=== PATIENT | female | born 1955 | race Asian ===

== ENCOUNTER → 2018-12-31 | Outpatient (CLI) | payer OTHER ==
[~2018-12-31] MED LIST: ASPI-715 PO; ASPI81TA15 PO; DULA0.75; FENO40TA3; IBU800 PO; LOR5 PO; LUTE20CA11 PO; METF-420 PO; METF-450 PO; OXYC-717 PO; PER PO; PIOG30TA27 PO; PREOD OD; ZOLP-1 PO
== END ==
LOC: AUD 09:30
PROVIDERS: ATTEND Physician Assistant
DX: H90.5 Unspecified sensorineural hearing loss (principal)
CPT/HCPCS: 92557; 92570

== ENCOUNTER → 2019-01-06 | Outpatient (CLI) | payer OTHER ==
[~2019-01-06] MED LIST changes: +GADOBENATE 529MG/1ML 15ML VIAL IVP ONE
--- NOTE | 2019-01-06 12:09 | RADIOLOGY IMAGING REPORT ---
FACILITY: [facility] - [place] PATIENT NAME: Prudence Vázquez : 1955 MR: [id number] V: [id number] EXAM DATE: ORDERING PHYSICIAN: ANILA PATEL TECHNOLOGIST: Location: [facility] Patient: Prudence Vázquez : 1955 Visit/Account:[id number] Date of Sevice: 01/06/2019 MR BRAIN/BRAIN STEM W/ & W/O CON Comparisons: None. Additional pertinent history: Sensorineural hearing loss TECHNIQUE: Multiplanar, multisequence brain MRI was performed with and without gadolinium contrast. Dedicated thin section imaging was performed through the internal auditory canals with axial and vilma nal imaging. CONTRAST: 13 ml of MultiHance. FINDINGS: Sagittal midline structures and craniocervical junction: Negative. Midline shift: None. Ventricles: Negative. Brain parenchyma: Diffusion weighted imaging: Negative. Gradient sequence: Not performed T2 weighted FLAIR images: Scattered foci of abnormal increased T2 signal within the periventricular and subcortical white matter, nonspecific but likely representing small vessel ischemic change on a chronic basis. Dedicated imaging through the internal auditory canals: Seventh and eighth cranial nerves: Negative. Semicircular canals/cochlea: Negative Fifth cranial nerves/Meckel's caves: Negative Cerebellopontine angles: Negative Pathologic enhancement: Negative Extra-axial spaces: Mild cerebral atrophy Dural venous sinuses and major arterial flow voids: Negative. Intracranial enhancement: Negative.. Mastoid air cells and paranasal sinuses: Negative. Surrounding soft tissues and orbits: Negative. Impression: 1. No evidence of acute intracranial pathology. 2. Underlying age-related changes. 3. Normal imaging of the internal auditory canals. Report Dictated By: Nilay Vela MD at 01/06/2019 11:55 AM Report E-Signed By: Nilay Vela MD at 01/06/2019 12:03 PM WSN:[id number]
== END ==
LOC: MRI 01:30
PROVIDERS: ATTEND Physician Assistant
DX: H90.5 Unspecified sensorineural hearing loss (principal)
CPT/HCPCS: 70553; A9577

== ENCOUNTER → 2019-01-21 | Outpatient (CLI) | payer OTHER ==
[~2019-01-21] MED LIST changes: -GADOBENATE 529MG/1ML 15ML VIAL IVP ONE
--- NOTE | 2019-01-21 14:09 | RADIOLOGY IMAGING REPORT ---
FACILITY: [facility] - [place] PATIENT NAME: Prudence Vázquez : 1955 MR: [id number] V: [id number] EXAM DATE: ORDERING PHYSICIAN: ANILA PATEL TECHNOLOGIST: Location: [facility] [place] Patient: Prudence Vázquez : 1955 Visit/Account:[id number] Date of Sevice: 01/21/2019 EXAMINATION: CT Temporal Bone without IV contrast HISTORY: Conductive hearing loss TECHNIQUE: Non-contrast temporal bone CT was performed with coronal and sagittal reformations. One of the following dose optimization techniques was utilized in the performance of this exam: autom ated exposure control; adjustment of the mA and/or kV according to patient size; or use of iterative reconstruction technique. Specific details can be referenced in the facility's radiology CT exam ope rational policy. COMPARISON: Brain MR January 06, 2019 FINDINGS: RIGHT: Mastoid air cells / EAC: Normal. Tympanic Membrane / Middle ear/ ossicles: Normal. Cochlea / vestibule / semicircular canals: Approximate 1.5 mm lucency just lateral to the cochlea, ax ial images 59 and 60, series 4 is asymmetric compared to the left. Scutum/tegmen tympani: Normal. Vestibular aqueduct: Normal. Petrous apex: Normal. IAC: Negative. ICA / jugular bulb: Normal. Visualized skull base: Normal. LEFT: Mastoid air cells / EAC: Normal. Tympanic Membrane / Middle ear/ ossicles: Normal. Cochlea / vestibule / semicircular canals: Normal. Scutum/tegmen tympani: Normal. Vestibular aqueduct: Normal. Petrous apex: Normal. IAC: Normal. ICA / jugular bulb: Normal. Visualized skull base: Normal. Other: Visualized brain/soft tissues/paranasal sinuses: Normal. IMPRESSION: 1.5 asymmetric lucency just lateral to the right cochlea may represent subtle fenestral otospongiosis . This could alternatively represent the baseline normal appearance in this patient and does not def initively represent otospongiosis. Correlate with history/exam. Otherwise normal temporal bone CT. Report Dictated By: Checo Johnson MD at 01/21/2019 1:49 PM Report E-Signed By: Checo Johnson MD at 01/21/2019 2:02 PM WSN:[id number]
== END ==
LOC: CT 03:27
PROVIDERS: ATTEND Physician Assistant
DX: H90.2 Conductive hearing loss, unspecified (principal)
CPT/HCPCS: 70480